=== PATIENT | female | born 1950 | race Hispanic/Latino ===

== ENCOUNTER → 2018-07-03 | Day surgery (SDC) | payer MEDICARE ==
[2018-07-02 15:55] LABS: BASOPHILS % 0.7 % (0.0-1.0); EOSINOPHILS # (AUTO) 0.1 (0.0-0.4); EOSINOPHILS % 1.5 % (0.0-6.0); HEMATOCRIT 37.7 % (34.2-44.1); HEMOGLOBIN 12.1 g/dL (12.0-16.0); LYMPHOCYTES # (AUTO) 1.2 (1.0-3.2); LYMPHOCYTES % 20.3 % (18.0-39.1); MEAN CORPUSCULAR HEMOGLOBIN 30.3 pg (28-32); MEAN CORPUSCULAR HGB CONC 32.1 g/dL (31-35); MEAN CORPUSCULAR VOLUME 94.3 fL (81-99); MONOCYTES # (AUTO) 0.5 (0.2-0.8); MONOCYTES % 9.2 % (4.4-11.3); NEUTROPHILS % 68.1 % (38.7-80.0); PLATELET COUNT 132 x10e3/uL (140-360); RED CELL DISTRIBUTION WIDTH 13.3 % (11.7-14.4)
[~2018-07-03] MED LIST: ASPIRIN81 MG; EPINEPHRINE HCL 1:1000 1ML 1 MG/ML AMP ONE; FUROSEMIDE40 MG PO; GABAPENTIN300 MG PO; GLIPIZIDE5 MG PO; ISOSORBIDE MONO20 MG PO; LIDOCAINE HCL 2% LOCAL INJ 5 ML SDV VIAL INJ ONE; LOSARTAN POTAS100 MG PO; METFORMIN HCL500 MG PO; METOPROLOL; METOPROLOL TART25 MG PO; MIDAZOLAM HCL 2 MG/2 ML VIAL ONE; NIFEDIPINE10 MG PO; OMEPRAZOLE40 MG PO; PROPOFOL IV EMULSION 10 MG/ML 50 ML VIAL ONE; RANITIDINE HCL150 MG; SERTRALINE HCL100 MG PO; VESICARE5 MG PO
--- OUTSIDE RECORDS SUMMARY | 2018-07-03 10:14 | XMS REPORT ---
[facility] Address Unknown Phone Unavailable Care Team Providers Care Materials Analyst Name Role Phone Unavailable Unavailable Payers Payer Name Policy Type Policy Number Effective Date Expiration Date Problems This patient has no known problems. Allergies, Adverse Reactions, Alerts Allergy Name Allergy Type Status Severity Reaction(s) Onset Date Inactive Date Treating Clinician Comments No Known Allergies DA Active U 2016-07-08 00:00:00 Medications This patient has no known medications. Results Test Description Test Time Test Comments Text Results Atomic Results Result Comments - MRI ABDOMEN W WO CONT 2018-06-21 15:58:00 FAX: Steve Goodman MD [phone] [place]: [address] St: REG FAX: Mireya Zelaya MD [phone] Name: DAMASO WAGNER [facility] : 1950 Age/S: 68/F [place] Unit #: [id number] Loc: [place] [address] Phys: Undefined Provider Acct: [id number] Dis Date: Status: REG CLI PHONE #: [phone] Exam Date: 06/21/2018 1500 FAX #: [phone] Reason: R93.2 EXAMS: CPT CODE: [id number] MRI ABDOMEN W WO CONT [id number] REASON FOR EXAM: R93.2 EXAM ORDER DATE: 06/21/2018 1:28 PM Ordering Ildefonso: Undefined Provider PROCEDURE: - MRI ABDOMEN W WO CONT FINDINGS: Multiplanar images of the upper abdomen were obtained with IV contrast. No focal mass identified in the liver. No evidence of intra or extrahepatic biliary distention. No abnormal enhancement. The pancreas and kidneys are unremarkable. The spleen is slightly enlarged measuring 15-14 cm with subcentimeter splenic cyst The gallbladder is well distended without evidence of gallstone. The common bile duct measures 0.4 cm IMPRESSION: Nodular contour liver suggestive of cirrhosis with portal hypertension and minimal splenomegaly (13-14 cm). No evidence of cholelithiasis. at 8557 Reported and signed by: Jerman Soria M.D. CC: Steve Whiting MD; Mireya Marley MD Technologist: RT NADIRA - MRI Trnnmrd Date/Time/By: 06/21/2018 (8657) : By: [email or web address] Orig Print D /T: S: 06/21/2018 (2277) PAGE 1 Signed Report - MRI MRCP 2018-06-21 15:54:00 FAX: Steve Goodman MD [phone] [place]: St: [facility] FAX: Mireya Zelaya MD [phone] Name: DAMASO WAGNER [facility] : 1950 Age/S: 68/F [address] [facility] Unit #: [id number] Loc: V.MRI [place] [address] Phys: Undefined Provider Acct: [id number] Dis Date: Status: REG CLI PHONE #: [phone] Exam Date: 06/21/2018 1445 FAX #: [phone] Reason: R93.2 EXAMS: CPT CODE: [id number] MRI MRCP [id number] REASON FOR EXAM: R93.2 EXAM ORDER DATE: 06/21/2018 1:28 PM Ordering M.D.: Undefined Provider PROCEDURE: - MRI MRCP FINDINGS: Axial and 3-D [id number] images of the upper abdomen and biliary system were obtained without IV contrast using MRCP protocol. Reconstructed sagittal and coronal images including 3D reconstructions of the biliary system were provided for interpretation. No focal mass identified in the liver. No evidence of intra or extrahepatic biliary distention. The gallbladder is minimally distended without evidence of gallstone. The common bile duct measures 0.4 cm IMPRESSION: No evidence of gallstone or choledocholithiasis at 2238 Reported and signed by: Jerman Soria M.D. CC: Steve Whiting MD; Mireya Marley MD Technologist: PEARL WEBERRT - MRI Trnscrd Date/Time/By: 06/21/2018 (6411) : By: PoolL Orig Print D/T: S: 06/21/2018 (7538) PAGE 1 Signed Report CREATININE W ESTIMATED GFR 2018-06-21 13:29:00 BEDSIDE CREATININE (test code=CREATBED) mg/dL 0.7-1.3 GLOMERULAR FILTRATION RATE POC (test code=GFRBED) 93 >60 CREATININE W ESTIMATED [id number] 13:29:00* Test Item Value Reference Range Comments BEDSIDE CREATININE (test code=CREATBED) 0.63 mg/dL 0.7-1.3 GLOMERULAR FILTRATION RATE POC (test code=GFRBED) > 60 >60 Previously reported result: 93 Edited by: DIDI on 06/21/18:061625 1329: GFRBED previously reported as: 93 H
[2018-07-03 15:15] VITALS: BP 150/69
== END | disposition home or self-care (01) ==
LOC: OR 10:09
PROVIDERS: ATTEND Internal Medicine Gastroenterology
DX: K29.70 Gastritis, unspecified, without bleeding (principal); B37.81 Candidal esophagitis; K31.819 Angiodysplasia of stomach and duodenum without bleeding; K44.9 Diaphragmatic hernia without obstruction or gangrene; G47.33 Obstructive sleep apnea (adult) (pediatric); I25.10 Atherosclerotic heart disease of native coronary artery without angina pectoris; E11.9 Type 2 diabetes mellitus without complications; R74.8 Abnormal levels of other serum enzymes; R93.2 Abnormal findings on diagnostic imaging of liver and biliary tract; I10 Essential (primary) hypertension; Z01.810 Encounter for preprocedural cardiovascular examination; Z01.812 Encounter for preprocedural laboratory examination; Z79.82 Long term (current) use of aspirin; Z79.84 Long term (current) use of oral hypoglycemic drugs; Z68.33 Body mass index [BMI] 33.0-33.9, adult
CPT/HCPCS: 36415 ×2; 43236; 43239; 43270; 82948; 85025; 93005; J0171; J2001; J2250; J2704; 43235